=== PATIENT | male | born 1975 | race Caucasian/White ===

== ENCOUNTER 2020-12-23 16:06 | Outpatient (CLI) | payer BC, SELFPAY ==
--- NOTE | ~2020-12-23 | CT_ITS ---
EXAMINATION: CT abdomen pelvis wo/w con DATE: 12/23/2020 16:41 INDICATION: Painless hematuria TECHNIQUE: Computed tomography (CT) of the abdomen and pelvis was performed without and subsequently with 130 cc Omnipaque 350 intravenous contrast. Automated exposure control and iterative reconstructi on technique were employed. Exam dose: 1352.65 mGy-cm total exam DLP. COMPARISON: None. FINDINGS: The lung bases are clear of infiltrate or consolidation. Normal heart size. No pericardial or pleural effusion. No hepatic, splenic, pancreatic, and adrenal or renal space-occupying mass lesion is evident. No bile duct or pancreatic duct dilatation. The gallbladder is unremarkable. No urinary tract calculus or hydroureteronephrosis. Normal caliber of the abdominal aorta. No intraperitoneal or retroperitoneal or pelvic mass lesion or adenopathy or ascites. Moderate prostate enlargement and minimal calcification. The urinary bladder is unremarkable. Normal appendix. No bowel obstruction, bowel wall thickening, pneumatosis or intraperitoneal free air . Small fat-containing umbilical hernia. No suspicious osteolytic or osteoblastic lesions. IMPRESSION: No urinary tract calculus, obstruction or mass lesion is detected. Reviewed, dictated and finalized at [facility]. Reviewed, dictated and finalized at location [facility].
[2020-12-23 16:24] LABS: Estimated Glomerular Filt Rate > 60
== END 2020-12-23 16:07 | disposition home or self-care (01) ==
PROVIDERS: PCP Physician Assistant; Visit Provider Physician Assistant
DX: R31.9 Hematuria, unspecified (principal)
CPT/HCPCS: 74178; Q9967

== ENCOUNTER 2020-12-24 07:52 | Outpatient (CLI) | payer BC, SELFPAY ==
--- NOTE | ~2020-12-24 | XR_ITS ---
EXAMINATION: XR UGIAC wo kub DATE: 12/24/2020 08:29 INDICATION: Intermittent dysphagia TECHNIQUE: The patient drank thick barium, gas-producing crystals, and thin barium. A total of 849 fl uoroscopic images of the esophagus, stomach, and proximal small bowel were obtained. Fluoroscopy expo sure time was 1.5 minutes. Total DAP was 9.9 mGycm^2 COMPARISON: None. FINDINGS: The esophagus is normal without mass or stricture. Esophageal motility is normal. Normal tr ansient nonstenosing esophageal B ring at the gastroesophageal junction which lies approximately 2 cm above level of the diaphragm which is borderline for small sliding-type hiatal hernia. There was no gastroesophageal reflux with provocative maneuvers. The stomach and proximal small bowel are normal. IMPRESSION: 1. Borderline small sliding-type hiatal hernia with gastroesophageal junction 2 cm above level of the diaphragm. Otherwise normal upper GI study with no reflux with provocative maneuvers. Reviewed, dictated and finalized at location [facility]. IMPRESSION: 1. Borderline small sliding-type hiatal hernia with gastroesophageal junction 2 cm above level of the diaphragm. Otherwise normal upper GI study with no reflu x with provocative maneuvers.
== END 2020-12-24 07:53 | disposition home or self-care (01) ==
PROVIDERS: PCP Physician Assistant; Visit Provider Physician Assistant
DX: R10.13 Epigastric pain (principal); K44.9 Diaphragmatic hernia without obstruction or gangrene
CPT/HCPCS: 74246

== ENCOUNTER → 2021-01-13 02:47 | Outpatient (CLI) | payer BC, SELFPAY ==
[2021-01-13 18:14] LABS: SARS-CoV-2 RNA PCR Negative
== END ==
PROVIDERS: PCP Physician Assistant; Visit Provider Internal Medicine Gastroenterology
DX: Z01.812 Encounter for preprocedural laboratory examination (principal); Z20.822 Contact with and (suspected) exposure to COVID-19
CPT/HCPCS: C9803; U0003; U0005

== ENCOUNTER 2021-01-16 11:00 | Day surgery (SDC) | payer BC, SELFPAY ==
[2021-01-08 10:16] VITALS: BMI 28.0
[2021-01-16 09:07] VITALS: BP 143/97; PULSE 88; RESP 16; TEMP 36.3; O2SAT 100
[2021-01-16] MEDS: LACTATED RINGERS 1,000 ML 150 ML IV CONT (09:14)
--- NOTE | 2021-01-16 09:52 | P.PNAN_ITS ---
Anes - Initial Pre Proc Eval Procedure: Operation Date: 01/16/21 10:30 Proposed Procedures p Esophagogastroduodenoscopy - Nils Law MD Date/Time: 01/16/21 09:52 Surgeon: Nils Law MD Pre Op Diagnosis: Dysphagia Patient Data Age: 45 Gender: M Height: 5 ft 9 in Weight: 89.5 kg Last Vital Signs Temp 97.3 F L 01/16/21 09:07 Pulse 88 01/16/21 09:07 Resp 16 01/16/21 09:07 BP 143/97 H 01/16/21 09:07 Pulse Ox 100 01/16/21 09:07 Allergies Allergy/AdvReac Type Severity Reaction Status Date / Time No Known Allergies Allergy Verified 01/16/21 09:05 Home Medications Medication Instructions Recorded Confirmed Type amlodipine 5 mg PO DAILY 01/08/21 01/16/21 History rosuvastatin 10 mg PO DAILY 01/08/21 01/16/21 History Patient hx anesthesia problems: none Family hx anesthesia problems: none [facility] Past Medical History Medical History (Updated 01/16/21 @ 09:43 by Jose R Guerrero MD) Hyperlipidemia Hypertension Social History Social History Smoking status: Never smoker Alcohol intake: current Drinks per week: 7 Substance use: never Substance use type: does not use Living arrangements: with family Spiritual care concerns: No Anes - Eval Final PreProcedure Day of Procedure 01/16/21 09:52 Patient weight: overweight Heart: regular rate and rhythm Lungs: clear to auscultation Airway: Mallampati scale class II Neurological: alert and oriented Last oral intake: >/= 8 hours ASA classification: II Emergent: no Anesthetic plan: proceed Anesthesia type and monitoring: general GIVS and standard monitoring Informed Consent: The patient's anesthetic plan and its attendant risks and benefits were discussed with the patient/family/POA. Questions were solicited and answers provided to the satisfaction of the patient/family/POA.
[2021-01-16 10:10] VITALS: BP 136/94; PULSE 66; RESP 12; O2SAT 98
[2021-01-16 10:25] VITALS: BP 118/82; PULSE 84; RESP 18; O2SAT 98
[2021-01-16 10:30] VITALS: BP 118/82; PULSE 87; RESP 17; O2SAT 97
[2021-01-16 10:35] VITALS: BP 118/82; PULSE 87; RESP 17; O2SAT 97
[2021-01-16 10:45] VITALS: BP 133/97; PULSE 79; RESP 20; O2SAT 100
--- NOTE | 2021-01-20 08:13 | PM.HPGS ---
History of Present Illness History of Present Illness Consent: Risks, benefits, and alternatives have been discussed and questions answered. Patient agrees to proceed with procedure. Chief complaint: Dysphagia Narrative: Ajay Love is a 45 year old male Who has had increasing difficulty swallowing. He has occasional heartburn. Review of Systems Review of Systems: All systems reviewed & are unremarkable except as noted in HPI and below PMFSH Past Medical History Medical History Hyperlipidemia Hypertension Social History Social History Smoking status: Never smoker Alcohol intake: current Drinks per week: 7 Substance use: never Substance use type: does not use Living arrangements: with family Spiritual care concerns: No Meds Home Medications and Allergies Home Medications Medication Instructions Recorded Confirmed Type amlodipine 5 mg PO DAILY 01/08/21 01/16/21 History rosuvastatin 10 mg PO DAILY 01/08/21 01/16/21 History Allergies Allergy/AdvReac Type Severity Reaction Status Date / Time No Known Allergies Allergy Verified 01/16/21 09:05 Exam Const: General: alert Orientation/consciousness: patient oriented x3 Resp: Auscultation: clear to auscultation bilaterally Cardio: Rhythm: regular rhythm GI: GI Palp: Yes Soft to palpation and No Tenderness to palpation present (GI) Neuro: General: patient oriented x3 Assessment and Plan Assessment and plan (1) Dysphagia: Code(s): R13.10 - Dysphagia, unspecified Status: Acute Assessment and Plan: EGD with possible biopsy or dilatation or cautery.
== END 2021-01-16 11:15 | disposition home or self-care (01) ==
PROVIDERS: PCP Physician Assistant; Visit Provider Internal Medicine Gastroenterology
PROC: 0DJ08ZZ Inspection of Upper Intestinal Tract, Via Natural or Artificial Opening Endoscopic (ICD-10-PCS; CPT 43235; principal; 2021-01-16 10:30)
DX: K22.2 Esophageal obstruction (principal); K31.7 Polyp of stomach and duodenum; K20.90 Esophagitis, unspecified without bleeding; I10 Essential (primary) hypertension; E78.5 Hyperlipidemia, unspecified
CPT/HCPCS: 43239; 43249; 43251; 87081; 88305; C1726; J7120

== ENCOUNTER 2022-09-06 13:26 | Outpatient (CLI) | payer OTHER, SELFPAY ==
--- NOTE | ~2022-09-06 | XR_ITS ---
EXAMINATION: XR chest 2V DATE: 09/06/2022 13:44 INDICATION: Cough and congestion. TECHNIQUE: Frontal and lateral views of the chest were obtained. COMPARISON: Chest 2 views 10/17/2018, CT abdomen and pelvis 12/23/2020 FINDINGS: The chest demonstrates clear lungs without pneumonia, pleural effusion, or pneumothorax. Th e heart size is normal. IMPRESSION: 1. No acute cardiopulmonary disease. Reviewed, dictated and finalized at location [facility]. [employer]
== END 2022-09-06 13:27 | disposition home or self-care (01) ==
LOC: ANHIMG 13:34
PROVIDERS: PCP Physician Assistant; Visit Provider Physician Assistant
DX: R05.9 Cough, unspecified (principal)
CPT/HCPCS: 71046

== ENCOUNTER 2023-02-07 10:19 | Outpatient (CLI) | payer OTHER, SELFPAY ==
--- NOTE | ~2023-02-07 | US_ITS ---
EXAMINATION: US soft tissue abdomen, US abdomen limited DATE: 02/07/2023 10:51 INDICATION: Elevated liver enzymes. Swelling, mass and lump at the left lower quadrant. TECHNIQUE: Multiple grayscale and Doppler ultrasound images of the abdomen were obtained. Additional grayscale and color Doppler imaging were obtained of the subcutaneous tissues at the left lower quadr ant abdominal wall region of concern. COMPARISON: CT abdomen and pelvis dated 12/23/2020 FINDINGS: 1.4 x 1.3 x 0.9 cm region of increased echogenicity of the subcutaneous fat at the region of concern which could be either inflammatory change of normal subcutaneous fat or potentially a lipoma with dis cernible peripheral capsule. No other abnormal masses or fluid collections identified. The pancreatic head and body are normal in appearance. The pancreatic tail is not visualized. Liver has normal echogenicity and contour, with a smooth surface. No liver lesion identified. No intrahepat ic biliary duct dilation suspected. Portal venous flow was seen in the hepatopetal, normal direction and has normal Doppler waveform. The gallbladder is normal in appearance. There is no cholelithiasis . The common bile duct measures 2-3 mm, which is normal. Kidneys and ureters are normal with no urol ithiasis, hydroureteronephrosis or perinephric/ureteral stranding. Visualized proximal inferior vena cava is normal. IMPRESSION: 1. 1.4 x 1.3 x 0.9 cm hypoechoic region in the left lower quadrant subcutaneous fat at the region of concern which could represent either postoperative inflammation of normal subcutaneous fat or potenti ally a lipoma. 2. Normal right upper quadrant ultrasound. Reviewed, dictated and finalized at location A. IMPRESSION: 1. 1.4 x 1.3 x 0.9 cm hypoechoic region in the left lower quadrant subcutaneous fat at the region of concern which could represent either postoperative inflam mation of normal subcutaneous fat or potentially a lipoma. 2. Normal right upper quadrant ultrasound.
== END 2023-02-07 10:20 | disposition home or self-care (01) ==
PROVIDERS: PCP Physician Assistant; Visit Provider Physician Assistant
DX: R74.8 Abnormal levels of other serum enzymes (principal)
CPT/HCPCS: 76705

== ENCOUNTER 2024-03-19 09:28 | Outpatient (CLI) | payer BC, SELFPAY ==
--- NOTE | ~2024-03-19 | CT_ITS ---
CT of the Abdomen and Pelvis: Indication: Hematuria Technique: 2.5 mm axial scans were obtained through the abdomen and pelvis prior to and following in travenous administration of 130 cc of Omnipaque 350. Dose reduction technique was used on this scan b y utilizing automated exposure control and iterative reconstruction technique. The dose-length produc t (DLP) was 1456.33 mGy-cm. COMPARISON: 12/23/2020 Findings: Scans through the lung bases are unremarkable. The liver, spleen, pancreas, gallbladder, adrenals and right kidney are within normal limits. Small l eft parapelvic renal cysts noted. No evidence of aortic aneurysm. No lymphadenopathy. No bowel obstruction or bowel wall thickening. There is no evidence to suggest acute appendicitis. Images through the pelvis were performed. Urinary bladder unremarkable. Prostate gland mildly enlarge d. No ascites. Impression: No definite etiology for hematuria identified. Enlarged prostate gland. Reviewed, dictated and finalized at location . Impression: No definite etiology for hematuria identified. Enlarged prostate gland.
[2024-03-19 09:49] LABS: Estimated Glomerular Filt Rate > 60
== END 2024-03-19 09:29 | disposition home or self-care (01) ==
LOC: ANHIMG 09:30
PROVIDERS: PCP Physician Assistant; Visit Provider Physician Assistant
DX: R31.9 Hematuria, unspecified (principal); N40.0 Benign prostatic hyperplasia without lower urinary tract symptoms
CPT/HCPCS: 74178; Q9967

== ENCOUNTER 2025-06-17 07:00 | Outpatient (NON) | payer OTHER, SELFPAY ==
--- NOTE | 2025-06-17 | S_PTH ---
PATIENT: Ajay Love LOC: [facility] U#:[id number] AGE/SX: 49/M ROOM: RE06/17/[address]: Ajay Aquino MD : 1975 BED: DIS: 06/17/2025 SPEC #: [id number] RECD: 06/18/25 11:45 STATUS: HAI REPacheco #: [id number] REJI: 06/17/25 00:[address]: Ajay Aquino DEPT: [facility] Surgical RECD BY: Jered Foster ENTERED: 06/18/25 11:47 SP TYPE: Surgical OTHR DR: Elena Duran, PA-C Tissues: A - Gastric Biopsy B - Gastric Biopsy C - Colon Polypectomy D - Colon Polypectomy E - Rectal Polyp Procedures: Hematoxylin and Eosin Stain Gross and Microscopic Level 4
== END 2025-06-17 07:01 | disposition home or self-care (01) ==
PROVIDERS: PCP Physician Assistant; Visit Provider Internal Medicine Gastroenterology
DX: Z12.11 Encounter for screening for malignant neoplasm of colon (principal); R13.10 Dysphagia, unspecified
CPT/HCPCS: 88305

== ENCOUNTER 2025-06-17 09:54 | Day surgery (SDC) | payer OTHER, SELFPAY ==
[2025-05-01 09:49] VITALS: BMI 28.0
[2025-06-04 10:35] VITALS: BMI 26.2
[2025-06-17 10:12] VITALS: BP 146/99; PULSE 87; RESP 16; TEMP 37.5; O2SAT 100
[2025-06-17] MEDS: SIMETHICONE ORAL SUSPENSION 20 MG/0.3 ML 30 ML BOTTLE 1.8 ML PO (10:15)
[2025-06-17] MEDS: LACTATED RINGERS 1,000 ML 150 ML IV CONT (10:23)
--- NOTE | 2025-06-17 11:11 | WPDANESEPPF ---
Anes - Initial Pre Proc Eval Procedure: Operation Date: 06/17/25 11:30 Proposed Procedures p EGD & Screening Colonoscopy - Ajay Aquino MD Date/Time: 06/17/25 11:11 Surgeon: Ajay Aquino MD Pre Op Diagnosis: Gastro-esophageal reflux disease without esophagit Patient Data Age: 49 Gender: M Height: 1.75 m Weight: 81.2 kg Last Vital Signs Temp 99.5 F 06/17/25 10:12 Pulse 87 06/17/25 10:12 Resp 16 06/17/25 10:12 BP 146/99 H 06/17/25 10:12 Pulse Ox 100 06/17/25 10:12 O2 Del Method Room Air 06/17/25 10:12 Allergies Allergy/AdvReac Type Severity Reaction Status Date / Time No Known Allergies Allergy Verified 06/17/25 10:10 Home Medications ?Medication ?Instructions ?Recorded ?Confirmed ?Type amlodipine 5 mg tablet 5 mg PO DAILY 01/08/21 06/17/25 History rosuvastatin 10 mg tablet 10 mg PO DAILY 01/08/21 06/17/25 History cetirizine 10 mg tablet (Allergy 10 mg PO DAILY PRN allergy symptoms 06/04/25 06/17/25 History Relief (cetirizine)) finasteride 5 mg tablet 5 mg PO DAILY 06/04/25 06/17/25 History omeprazole 40 mg capsule,delayed 40 mg PO DAILY 06/04/25 06/17/25 History release Patient hx anesthesia problems: none Family hx anesthesia problems: none Results Review: All pre-operative results and documents have been reviewed as part of the pre-operative evaluation. [facility] Past Medical History Medical History Hyperlipidemia Hypertension Social History Social History Smoking status: Never smoker Alcohol intake: current Drinks per week: 5 Substance use: never Substance use type: does not use Living arrangements: with family Spiritual care concerns: No Anes - Eval Final PreProcedure Day of Procedure 06/17/25 11:11 Heart: regular rate and rhythm Lungs: clear to auscultation Airway: Mallampati scale class II Neurological: alert and oriented Last oral intake: >/= 8 hours ASA classification: II Anesthetic plan: proceed Anesthesia type and monitoring: monitored anesthesia care Results Review: All pre-operative results and documents have been reviewed as part of the pre-operative evaluation. Informed Consent: The patient's anesthetic plan and its attendant risks and benefits were discussed with the patient/family/POA. Questions were solicited and answers provided to the satisfaction of the patient/family/POA.
--- NOTE | 2025-06-17 11:27 | PM.IMHP ---
H&P: HPI History of Present Illness Date/Time: 06/17/25 11:27 Chief Complaint: GERD-Screening colonoscopy Narrative: This is the patient's first colonoscopy. There are no GI symptoms and there is no family history of colorectal cancer. A few years ago the patient had an EGD with dilatation of a stricture, presumably associated with reflux. Symptomatic from a GERD standpoint and denies dysphagia or regurgitation. he is referred for EGD and colonoscopy. Review of Systems Review of Systems: All systems reviewed & are unremarkable except as noted in HPI and below PMFSH Past Medical History Medical History Hyperlipidemia Hypertension Social History Social History Smoking status: Never smoker Alcohol intake: current Drinks per week: 5 Substance use: never Substance use type: does not use Living arrangements: with family Spiritual care concerns: No Meds Home Medications and Allergies Home Medications ?Medication ?Instructions ?Recorded ?Confirmed ?Type amlodipine 5 mg tablet 5 mg PO DAILY 01/08/21 06/17/25 History rosuvastatin 10 mg tablet 10 mg PO DAILY 01/08/21 06/17/25 History cetirizine 10 mg tablet (Allergy 10 mg PO DAILY PRN allergy symptoms 06/04/25 06/17/25 History Relief (cetirizine)) finasteride 5 mg tablet 5 mg PO DAILY 06/04/25 06/17/25 History omeprazole 40 mg capsule,delayed 40 mg PO DAILY 06/04/25 06/17/25 History release Allergies Allergy/AdvReac Type Severity Reaction Status Date / Time No Known Allergies Allergy Verified 06/17/25 10:10 Vital Signs Vital Signs - 24 hr 06/17/25 10:12 Temperature 99.5 F Pulse Rate 87 Respiratory Rate 16 Blood Pressure 146/99 H Pulse Oximetry 100 Oxygen Delivery Room Air Exam Const: General: cooperative and healthy appearing Resp: Effort & Inspection: normal respiratory effort and able to speak in complete sentences Auscultation: clear to auscultation bilaterally Cardio: Rate: regular rate Rhythm: regular rhythm GI: Inspection: normal to inspection GI Palp: No No hepatosplenomegaly present Auscultation: normal bowel sounds Rectal Exam: deferred Skin: General skin exam: normal color Psych: Appearance: grossly normal Mental Status: mental status grossly normal Assessment and Plan Assessment and plan (1) Dysphagia: Code(s): R13.10 - Dysphagia, unspecified Status: Acute Assessment and Plan: The patient is deemed a good candidate for the procedures. Consent signed. Will proceed. (2) Encounter for screening colonoscopy: Code(s): Z12.11 - Encounter for screening for malignant neoplasm of colon Status: Acute
[2025-06-17] MEDS: SIMETHICONE ORAL SUSPENSION 20 MG/0.3 ML 30 ML BOTTLE 0.6 ML IRRIGATION (12:01)
--- NOTE | 2025-06-17 12:04 | WPDANESPN ---
Anes - Prog Note Post-Op Date/Time: 06/17/25 12:04 Vital Signs: Last Vital Signs Temp 99.5 F 06/17/25 10:12 Pulse 87 06/17/25 10:12 Resp 16 06/17/25 10:12 BP 146/99 H 06/17/25 10:12 Pulse Ox 100 06/17/25 10:12 O2 Del Method Room Air 06/17/25 10:12 Pain Score (VAS): no Patient Feedback: Patient satisfied with anesthetic care.
[2025-06-17 12:12] VITALS: BP 101/65; PULSE 78; RESP 16; O2SAT 99
[2025-06-17 12:22] VITALS: BP 116/70; PULSE 77; RESP 16; O2SAT 100
[2025-06-17 12:32] VITALS: BP 140/86; PULSE 80; RESP 16; O2SAT 100
== END 2025-06-17 13:00 | disposition home or self-care (01) ==
PROVIDERS: PCP Physician Assistant; Visit Provider Internal Medicine Gastroenterology
PROC: 0DJ08ZZ Inspection of Upper Intestinal Tract, Via Natural or Artificial Opening Endoscopic (ICD-10-PCS; CPT 45378; principal; 2025-06-17 11:30)
PROC: 0DJD8ZZ Inspection of Lower Intestinal Tract, Via Natural or Artificial Opening Endoscopic (ICD-10-PCS; CPT 45378; 2025-06-17 11:30)
DX: Z12.11 Encounter for screening for malignant neoplasm of colon (principal); D12.3 Benign neoplasm of transverse colon; D12.5 Benign neoplasm of sigmoid colon; D12.8 Benign neoplasm of rectum; K57.30 Diverticulosis of large intestine without perforation or abscess without bleeding; K64.4 Residual hemorrhoidal skin tags; K21.9 Gastro-esophageal reflux disease without esophagitis; K29.70 Gastritis, unspecified, without bleeding; K31.7 Polyp of stomach and duodenum
CPT/HCPCS: 45385; 43239